=== PATIENT | male | born 1970 | race Caucasian/White ===

== ENCOUNTER 2023-03-14 19:50 | Outpatient (OUT) | payer OTHER, SELFPAY | END 2023-03-14 19:51 | disposition home or self-care (01) | LOC: SLEEP 19:51 | PROVIDERS: PCP Psychiatry & Neurology Neurology; Visit Provider Psychiatry & Neurology Neurology | DX: G47.33 Obstructive sleep apnea (adult) (pediatric) (principal); G43.909 Migraine, unspecified, not intractable, without status migrainosus; R93.7 Abnormal findings on diagnostic imaging of other parts of musculoskeletal system; G25.0 Essential tremor; G43.709 Chronic migraine without aura, not intractable, without status migrainosus | CPT/HCPCS: 95811 ==